=== PATIENT | male | born 1995 | race Caucasian/White ===

== ENCOUNTER 2021-02-09 17:00 | Emergency (ER) | payer OTHER, SELFPAY ==
[2021-02-09 17:11] VITALS: BP 147/89; PULSE 117; RESP 18; TEMP 36.1
--- NOTE | 2021-02-09 17:36 | ED.GENADULT ---
HPI - General Adult General Chief complaint: Abdominal Pain Stated complaint: Abd lump Time Seen by Provider: 02/09/21 17:36 Source: patient and RN notes reviewed Mode of arrival: ambulatory Limitations: no limitations History of Present Illness HPI narrative: 25-year old male presents concern for painful lump on his abdomen. Reports he noted several days ago and is painful to touch. He denies nausea, vomiting, diarrhea, generalized abdominal pain, fever, body sweats. MD complaint: Abdominal lump Related Data Allergies Allergy/AdvReac Type Severity Reaction Status Date / Time No Known Allergies Allergy Verified 02/09/21 17:09 Review of Systems Review of Systems: CONSTITUTIONAL: Denies malaise, chills, sweats, or fever. GASTROINTESTINAL: Denies abdominal pain, nausea, vomiting, diarrhea SKIN: Reports a tender mass on the abdominal wall MUSCULOSKELETAL: Denies myalgia. All systems reviewed & are unremarkable except as noted in HPI and below PMFSH Comments At time of signature, agree with nursing past medical, surgical, social and family history. There is no relevant family history pertinent to the presenting complaint Exam Narrative: GENERAL: Well-appearing, well-nourished, and in no acute distress. HEAD: Normocephalic EYES: PERRLA, sclera clear ENT: Nares clear. Mucous membranes moist. NECK: Supple. CHEST: No respiratory distress. Speaks in full sentences. HEART: Regular rate and rhythm. Normal peripheral pulses. ABDOMEN: Morbidly obese, soft, nontender, nondistended, normal active bowel sounds SKIN: Warm, dry large area of patchy erythema without induration noted to the lower abdomen with a central palpable mass in the adipose tissue consistent with abscess NEURO: Alert and oriented x3. PSYCH: Normal mood and affect Course Course Emergency Course: Patient is aware of diagnosis, understands and agrees to treatment plan. Anticipatory guidance given. Patient agrees to follow-up as directed and is aware of reasons to seek care at the emergency department. Portions of this record may have been created with voice recognition software Level of Care: Express Care Visit Vital Signs Vital signs: Vital Signs Temperature 97 F L 02/09/21 17:11 Pulse Rate 117 H 02/09/21 17:11 Respiratory Rate 18 02/09/21 17:11 Blood Pressure 147/89 H 02/09/21 17:11 Temperature 97 F L 02/09/21 17:11 Pulse Rate 117 H 02/09/21 17:11 Respiratory Rate 18 02/09/21 17:11 Blood Pressure 147/89 H 02/09/21 17:11 Reviewed. Pt has been instructed to follow up with his primary care provider within the next week regarding his elevated blood pressure today. Procedures Abscess I/D abdomen: Date of Incision: 02/09/21 Time of Incision: 18:00 Side (if applicable): left Local Anesthetic: lidocaine 1% Amount of anesthesia used (mL): 6 Technique: incised with #11 blade Irrigation: No Packing used?: none I&D Results: Blood (Serous fluid) Abcess I&D Additional Comments: Incision and drainage produced any purulent drainage, it appears the abscesses deeper than was able to penetrate into the adipose tissue. Patient was advised to follow-up with primary care or general surgery for further evaluation. Medical Decision Making MDM Narrative Medical decision making narrative: Verbal consent was obtained. The indication for the procedure was clinical suspicion for an abscess. The region was anesthetized with 1% lidocaine. The most fluctuant portion of the abscess was incised with an 11 blade scalpel. The abscess cavity of explored and evacuated, all loculations were broken up with a curved hemostat. The cavity was then packed with packing material and dressed with a clean gauze dressing. I was present for this entire procedure and there were no complications Vital Signs Vital Signs: Vital Signs Temperature 97 F L 02/09/21 17:11 Pulse Rate 117 H 02/09/21 17:11 Respiratory
== END 2021-02-09 18:33 | disposition home or self-care (01) ==
PROVIDERS: Emergency Provider Nurse Practitioner
DX: L03.311 Cellulitis of abdominal wall (principal); L02.211 Cutaneous abscess of abdominal wall
CPT/HCPCS: 10060; 99213; G0463